=== PATIENT | female | born 1950 | race Caucasian/White ===

== ENCOUNTER 2024-11-09 11:39 | Emergency (ER) | payer MEDICARE, OTHER, SELFPAY ==
[2024-11-09 11:40] VITALS: BP 180/84
--- NOTE | 2024-11-09 11:42 | ED.GENMED ---
ED Provider Triage
<Rl Burkett PA-C - Last Filed: 11/09/24 11:42>
-
Patient seen by provider in Triage?: Seen in Triage
74-year-old female not anticoagulated presents via EMS from home after trip and fall forward hitting her forehead on the floor. She noted a laceration to her forehead. No significant headache or neck pain. No preceding dizziness or
lightheadedness this was purely a mechanical fall
Patient does have an approximate 3 cm transverse laceration mid forehead. CT head and cervical spine ordered. Will likely need wound closure
Seen by healthcare provider at triage but warrants further assessment
History of Present Illness
<Rl Burkett PA-C - Last Filed: 11/09/24 11:42>
General
Chief Complaint: Head Injury
Time Seen by Provider: 11/09/24 12:11
<Zach Land DO - Last Filed: 11/09/24 14:17>
History of Present Illness
History of Present Illness:
TIME OF INITIAL ENCOUNTER: 1 PM
HPI: The patient states that she tripped and fell on 'something, possibly the vacuum sack cleaner'. During the fall, she struck a table and now has a laceration to the central forehead. She feels a little bit lightheaded but otherwise has no
significant symptoms. She did not describe concussion symptoms. She has no significant headache. She has no symptoms to the torso or extremities.
EXAM:
GENERAL: Well appearing in no distress
CERVICAL SPINE: No midline c-spine tenderness with excellent AROM
HEAD: No evidence of craniofacial trauma
CHEST: No chest wall tenderness, normal heart sounds
LUNGS: Equal lung sounds, no respiratory distress
ABDOMEN: No abdominal tenderness, no peritoneal signs
EXTREMITIES: Normal active range of motion, no tenderness
NEURO: Excellent strength all extremities, appropriate mental status, normal speech/language
NUMBER AND COMPLEXITY OF PROBLEMS ADDRESSED AT THE ENCOUNTER
� Chronic conditions affecting care: High blood pressure
� Acute Exacerbation and/or Progression of Chronic Illness: This is an acute problem
� Differential Diagnosis includes: Intracranial hemorrhage, laceration, foreign body, concussion
AMOUNT AND/OR COMPLEXITY OF DATA TO BE REVIEWED AND ANALYZED
� I performed an independent evaluation of and my interpretation is:
EKG:
CT: CAT scan of the brain and cervical spine show no acute abnormality
X-rays:
Laboratory Studies:
Other:
� Review of other/old records: I reviewed records, the patient had a colonoscopy in 2016
� Clinical information was obtained by an independent historian: I spoke to son at bedside
� Prescriptions/Medications Considered but not given:
� Further testing considered but not performed:
RISK OF COMPLICATIONS AND/OR MORBIDITY OR MORTALITY OF PATIENT MANAGEMENT
� Social determinants of health affecting care: Lives at home
� Discussion with other providers:
� Escalation of care including admission/observation vs risk of discharge considered: The patient's CTs are unremarkable for trauma. Updated tetanus status. The wound was cleaned, irrigated, and repaired.
ANY OTHER UPDATES:
Phy Exam
<Zach Land DO - Last Filed: 11/09/24 14:17>
Physical Exam
Physical Exam:
See HPI
Course
<Rl Burkett PA-C - Last Filed: 11/09/24 11:42>
Orders/Labs/Results
Orders:
Orders
11/09/24 11:40
CT Cervical Spine W/o Iv Contr Urgent
Comment:
Reason For Exam: fall
11/09/24 11:41
CT Head W/o Iv Contrast Urgent
Comment:
Reason For Exam: fall
11/09/24 13:25
Tetanus/Diphth/Acelpertussis [Adacel] 0.5 ml IM .ONCE ONE
Vital Signs
Initial and Last Documented VS:
Initial Vital Signs
Temp Pulse Resp BP Pulse Ox
36.8 C 65 16 180/84 98
11/09/24 11:40 11/09/24 11:40 11/09/24 11:40 11/09/24 11:40 11/09/24 11:40
Last Documented Vital Signs
Temp Pulse Resp BP Pulse Ox
36.8 C 62 18 168/81 98
11/09/24 11:40 11/09/24 13:58 11/09/24 13:58 11/09/24 13:58 11/09/24 13:58
<Zach Land, DO - Last Filed: 11/09/24 14:17>
Orders/Labs/Results
Orders:
Orders
11/09/24 11:40
CT Cervical Spine W/o Iv Contr Urgent
Comment:
Reason For Exam: fall
11/09/24 11:41
CT Head W/o Iv Contrast Urgent
Comment:
Reason For Exam: fall
11/09/24 13:25
Tetanus/Diphth/Acelpertussis [Adacel] 0.5 ml IM .ONCE ONE
Vital Signs
Initial and Last Documented VS:
Initial Vital Signs
Temp Pulse Resp BP Pulse Ox
36.8 C 65 16 180/84 98
11/09/24 11:40 11/09/24 11:40 11/09/24 11:40 11/09/24 11:40 11/09/24 11:40
Last Documented Vital Signs
Temp Pulse Resp BP Pulse Ox
36.8 C 62 18 168/81 98
11/09/24 11:40 11/09/24 13:58 11/09/24 13:58 11/09/24 13:58 11/09/24 13:58
Procedures
<Zach Land, DO - Last Filed: 11/09/24 14:17>
Laceration Closure
Upper Face:
Status of Wound: clean
Size of Wound in cm: 4
Description of Wound Edges: sharp
Preparation: cleaned with saline and other (Chlorhexidine)
Anesthesia: 1% Lidocaine with epi
Revision/Debridement: routine- no revision
Type of Closure: layered closure (Placed 1 Monocryl suture in the muscle layer) and interrupted sutures
Number of sutures: 6
Additional information:
I placed six 6-0 Prolene (superficial) and one 6-0 Monocryl (deep)
<Zach Land DO - Last Filed: 11/09/24 14:17>
*Critical Care Note
Total Time (30-74mins, 75-104mins- exclusive of procedures): Not Applicable
ED Attending Note
<Rl Burkett PA-C - Last Filed: 11/09/24 11:42>
-
Portions of this chart may have been created with voice recognition software.� Occasional wrong word or��sound alike� substitutions may have occurred due to the inherent limitations of voice recognition software.
Discharge Plan
Departure
Patient Disposition: Home (Routine Discharge)
Date of Disposition: 11/09/24
Time of Disposition: 14:08
Patient with high blood pressure during this ER visit?: Yes
Discharge Problem:
Complex laceration of forehead
Instructions: Head Injury in Adults (DC), Laceration Repair With Stitches (DC), BLOOD PRESSURE
Referrals:
Demarcus Salinas DO [Family Provider] -
Activity Restrictions/Additional Instructions:
I placed a deep stitch in the muscle layer (absorbable which will dissolve on its own) and then also closed the skin layer with a nonabsorbable suture�these will need to be removed in approximately 5 days by your doctor. The CAT scan of the head
and cervical spine showed no acute signs of trauma. Return here if worse or other concerns.
Interventions
Interventions:
*Risk Screen - Suicide Last Done: 11/09/24 11:40
*General Assessment Last Done: 11/09/24 11:40
*Neglect/Abuse Screening Last Done: 11/09/24 11:40
ED- Neurological Assessment Last Done: 11/09/24 13:58
ED-Skin Assessment Last Done: 11/09/24 13:58
Discharge Date and Time
Print Language: MONGOLIAN
[2024-11-09] MEDS: ADACEL 0.5 ML IM (13:50)
[2024-11-09 13:58] VITALS: BP 168/81
== END 2024-11-09 14:54 | disposition home or self-care (01) ==
LOC: EMR 11:39
PROVIDERS: EMERGENCY PHYSICIAN Emergency Medicine; FAMILY PHYSICIAN Family Medicine
DX: S01.81XA Laceration without foreign body of other part of head, initial encounter (principal); W01.190A Fall on same level from slipping, tripping and stumbling with subsequent striking against furniture, initial encounter; Z23 Encounter for immunization
CPT/HCPCS: 99284; 12052; 90471; 70450; 72125; 90715